=== PATIENT | male | born 1965 | race African-American/Black ===

== ENCOUNTER 2017-08-31 05:51 | Day surgery (SDC) | payer OTHER ==
[2017-08-28 11:37] VITALS: BMI 28.4
--- NOTE | 2017-08-31 06:02 | HP ---
HISTORY OF PRESENT ILLNESS: Mr. Bennett is a 52-year-old man who presents for evaluation of right- sided carpal tunnel syndrome for which we have actually discussed before about a year ago. He has be en evaluated by who is a neurologist in [facility] who performed an EMG that confirms carp al tunnel of the right hand. He presents now with just to have a discussion about definitively be tr eating this at this time. PAST MEDICAL HISTORY: Significant for hypertension, diabetes, and hyperlipidemia. CURRENT MEDICATIONS: Aspirin, lisinopril, hydrochlorothiazide, metformin, Ambien, Viagra, atorvastat in. ALLERGIES: No known drug allergies. PAST SURGICAL HISTORY: ACDF. PHYSICAL EXAMINATION: Patient is alert and oriented x3. Sensory disturbance to the first three digi ts of the right hand and some weakness compared to the left, although strength is still 5/5. ASSESSMENT: Carpal tunnel syndrome, right upper extremity. PLAN: Dr. Joy met with the patient, reviewed testing and advocated for right carpal tunnel release . He explained to the patient the risks, benefits, and alternatives to the procedure. The patient e xpressed understanding and would like to move forward with surgery as discussed. I do believe the chris gomez is mentally competent and capable of making medical decisions for himself. We will move forwar d with surgery as planned. This is Landry Welsh PA-C, dictating for Dr. Joy.
[2017-08-31] MEDS ORDERED: Fentanyl 100 MCG/2 ML VIAL ONE (06:22)
[2017-08-31] MEDS ORDERED: Midazolam HCl 2 mg/2 ml Vial ONE (06:22)
[2017-08-31] MEDS ORDERED: CEFAZOLIN/Water 2 GM/20 ML SYRINGE ONE (06:28)
[2017-08-31] MEDS ORDERED: Lidocaine 1% w/Epinephrine 1:200K 30 ML VIAL ONE (06:34)
--- NOTE | 2017-08-31 09:30 | OP ---
DATE OF SERVICE: 08/31/2017 SURGEON: Bird Joy M.D. [facility] NURSE: Landry Welsh PA-C INDICATION: Pain. DIAGNOSIS: Right carpal tunnel syndrome. PROCEDURE: Right carpal tunnel release. ANESTHESIA: TIVA and local. PROCEDURE IN DETAIL: The patient was brought into the operating room and placed under anesthesia. He was placed on the table in the supine position. His arms extended up perpendicular to his body. A linear incision was planned across the crease of the wrist and right in line with the long axis of the fourth digit. Area was infiltrated with lidocaine. After an appropriate operative pause, the incision was created. The underlying carpal tunnel ligament was identified and incised. The incision was extended both in proximal and distal directions until there was decompression of the carpal tunnel elements. Wound was irrigated. Hemostasis was maintained throughout. The procedure came to an end without complication. Of note, the carpal tunnel elements appeared to be scarred. There has been no other prior surgery; however. The carpal tunnel elements did not have a typical shiny glistening appearance. [facility]
[2017-08-31] MEDS ORDERED: Ketorolac Tromethamine 30 MG/ML VIAL ONE (10:54)
[2017-08-31] MEDS ORDERED: Lidocaine 1% PF 5 ML VIAL ONE (10:54)
[2017-08-31] MEDS ORDERED: Propofol 200 MG/20 ML VIAL ONE (10:54)
== END 2017-08-31 08:51 | disposition home or self-care (01) ==
LOC: SDC 05:51
PROVIDERS: ATTEND Neurological Surgery
PROC: 01N50ZZ Release Median Nerve, Open Approach (ICD-10-PCS; principal; 2017-08-31)
DX: G56.01 Carpal tunnel syndrome, right upper limb (principal); I10 Essential (primary) hypertension; E11.9 Type 2 diabetes mellitus without complications; E78.5 Hyperlipidemia, unspecified; M19.90 Unspecified osteoarthritis, unspecified site; Z79.82 Long term (current) use of aspirin; Z79.84 Long term (current) use of oral hypoglycemic drugs; Z79.899 Other long term (current) drug therapy; Z98.1 Arthrodesis status
CPT/HCPCS: J1885; J2001; J2250; J2704; J3010